=== PATIENT | male | born 1950 | race Caucasian/White ===

== ENCOUNTER → 2020-08-22 | Outpatient (CLI) | payer MEDICARE ==
[2014-04-07 15:00] VITALS: BP 130/73
[~2020-08-22] MED LIST: AMIO200T6 PO; ASPI325T8 PO; ATEN25TA PO; CEPH-264 PO; GABA300C18 PO; HYDR-2679 PO; HYDR-2761 PO; SIMV40TA18 PO; ZOLP10TA PO
--- NOTE | 2020-08-22 13:22 | KCIC ---
CERVICAL SPINE 5V DATE: 08/22/2020 12:00 AM INDICATION: Chronic neck pain, left shoulder pain, DDD / Spl. Instructions: / History: COMPARISON: None. FINDINGS: The cervical spine is visualized to the level of C7 on the lateral views. Bones/Alignment: No evidence of acute fracture. There is no listhesis. Normal alignment of the lateral masses of C1 on C2. Joints: Moderate degenerative disc disease. The facets are normally aligned. Soft tissue: No significant prevertebral soft tissue swelling. IMPRESSION: Moderate cervical spondylosis. Electronically signed by: Mikhail Ortiz MD (08/22/2020 1:20 PM) [id number]
== END ==
LOC: KCIC 10:05
PROVIDERS: ATTEND Psychiatry & Neurology Neurology
DX: M47.812 Spondylosis without myelopathy or radiculopathy, cervical region (principal); M50.30 Other cervical disc degeneration, unspecified cervical region; G89.29 Other chronic pain
CPT/HCPCS: 72050